=== PATIENT | female | born 1990 | race Native Hawaiian/Other Pacific Islander ===

== ENCOUNTER 2018-09-22 23:17 | Inpatient (IN) | payer OTHER ==
[2018-09-22 23:53] VITALS: BMI 32.6
[2018-09-23] MEDS ORDERED: Lidocaine 1% (PF) 30 ML VIAL ONE (00:03)
[2018-09-23] MEDS ORDERED: NS / Oxytocin 40 units/1000ml 1,000 ML ONE (00:03)
[2018-09-23] MEDS ORDERED: Lactated Ringer's 1,000 ML IV SCH ×2 (00:20)
[2018-09-23] MEDS ORDERED: Ibuprofen 800 MG TAB PO PRN (00:20)
[2018-09-23] MEDS ORDERED: NS w/ Oxytocin 10 units 500 ML IV SCH (00:20)
[2018-09-23] MEDS ORDERED: Lidocaine 1% (PF) 30 ML VIAL SC PRN (00:20)
[2018-09-23] MEDS ORDERED: Butorphanol Tartrate 1 MG/ML VIAL SLOW IVP PRN (00:20)
[2018-09-23] MEDS ORDERED: HYDROcodone/Acetaminophen 5/325 mg Tablet PO PRN ×4 (00:20→02:24)
[2018-09-23] MEDS ORDERED: hydrALAZINE 20 MG/ML VIAL SLOW IVP PRN ×2 (00:20→02:24)
[2018-09-23] MEDS ORDERED: NS / Oxytocin 40 units/1000ml 1,000 ML IV PRN (00:20)
[2018-09-23] MEDS ORDERED: Promethazine HCl 25 MG/ML VIAL IM PRN ×2 (00:20→02:24)
[2018-09-23] MEDS ORDERED: Ondansetron PF 4 MG/2 ML Vial IVP PRN ×2 (00:20→02:24)
--- NOTE | 2018-09-23 00:21 | PDOC.LDHP ---
Labor and Delivery H&P Chief complaint: contractions HPI: 28 yo at term 38 wk in labor at 7 cm presentation Current gestational age (weeks): 38 Due date: 10/07/18 Dating criteria: last menstrual period, first trimester ultrasound Grav: 5 Para: 4 OB History Details: later transfer to [facility] from Current complications: none Abnormal US findings: No Current medications: pre- vitamins Previous surgical history: none Allergies/Adverse Reactions: Allergies Allergy/AdvReac Type Severity Reaction Status Date / Time No Known Allergies Allergy Verified 09/22/18 23:47 Social history: none - Physical Exam Vital signs reviewed and normal: yes General: NAD Heart: RRR Lungs: nonlabored breathing Abdomen: NTTP Extremeties: no edema FHT: category 1 - Vaginal Exam cm dilated: 7 Effacement: 100% Station: 2+ - OB Labs Blood type: B RH: positive Antibody Screen: negative HIV: negative RPR: negative HEPSAg: negative 1 hour GCT: negative GBS: negative - Assessment L&D Assessment: term patient in labor - Plan Plan: admit to L&D
--- NOTE | 2018-09-23 00:23 | PDOC.OPDEL ---
OB Operative/Delivery Note Delivery Dr/Surgeon: Aol Pride Pre-Delivery Diagnosis: active labor Procedure/Post Delivery Dx: spontaneous vaginal delivery Weeks gestation: 38 Anesthesia: none - Findings A Sex: female Weight: 0 oz (pend) - 1 min: 0 (pend) - 5 min: 0 - Additional Findings/Plan Placenta delivered: spontaneous Repaired Obstetrical Laceration: none Estimated blood loss: 300 Compilations/Other Findings: 0013 attended delivery by RN, I presented at baby delivered. placed on maternal abdomen. placenta spontaneous. routine post care Post delivery plan: routine recovery
[2018-09-23 00:34] LABS: Hemoglobin 12.6 g/dL (12.0-16.0); Mean Corpuscular HGB CONC 31.6 g/dL (32.0-36.0); Mean Corpuscular Hemoglobin 27.5 pg (27.0-31.0); Mean Corpuscular Volume 87.1 fL (78.0-98.0); Mean Platelet Volume 8.3 fL (7.4-10.4); Platelet Count 202 thou/uL (130-400); RBC Distribution Width 12.5 % (11.5-14.5); Red Blood Cell (RBC) Count 4.57 mill/uL (4.20-5.40); White Blood Cell (WBC) Count 17.7 thou/uL (4.8-10.8)
[2018-09-23 01:16] LABS: HBSAg Index 0.31 S/CO (0-0.99); Hep B Surf Ag Non-Reactive S/CO (NonReactive); Syphilis Antibody Nonreactive (Nonreactive); Syphilis Antibody Index 0.04 S/CO (<1.00 Non-Reactive)
[2018-09-23] MEDS ORDERED: Lanolin Ointment 7 GM TUBE TOP PRN (02:24)
[2018-09-23] MEDS ORDERED: Milk Of Magnesia 30 ML UDCUP PO PRN (02:24)
[2018-09-23] MEDS ORDERED: NS / Oxytocin 40 units/1000ml 1,000 ML IV SCH (02:24)
[2018-09-23] MEDS ORDERED: Bisacodyl 10 MG SUPP PR PRN (02:24)
[2018-09-23] MEDS ORDERED: diphenhydrAMINE 25 MG CAP PO PRN (02:24)
[2018-09-23] MEDS ORDERED: Preparation H Ointment 28 GM TUBE PR PRN (02:24)
[2018-09-23] MEDS ORDERED: Benzocaine-Menthol 82.5 ML CAN TOP PRN (02:24)
[2018-09-23] MEDS ORDERED: Zolpidem Tartrate 5 MG TAB PO PRN (02:24)
--- NOTE | 2018-09-23 06:44 | PDOC.PP ---
Post Progress Note Post Day #: 0 PO intake tolerated: yes Flatus: yes Ambulation: yes Vital Signs (12 hours) Temp Pulse Resp BP Pulse Ox 09/23/18 03:55 98.2 F 70 18 100/59 L 09/23/18 03:00 98.2 F 67 18 109/67 99 Weight Weight 173 lb - Physical Examination General: NAD Cardiovascular: no m/r/g, RRR Respiratory: clear to auscultation bilaterally Abdominal: lochia Extremities: negative homans (B) Neurological: no gross focal deficits Psychiatric: A&Ox3, normal affect Result Diagrams: 09/23/18 00:22 Additional Labs: Post Labs Blood Type B POSITIVE 09/23/18 01:31 Hep Bs Antigen Non-Reactive S/CO (NonReactive) 09/23/18 00:22 - Assessment/Plan doing well 6 hr PP, routine care, home in am
[2018-09-23] MEDS: Ferrous Sulfate 325 MG TAB PO SCH ×2 (07:50→16:48)
[2018-09-23] MEDS ORDERED: Adacel (T-DAP) 0.5 ML SYRINGE IM ONE (09:00)
[2018-09-23] MEDS: Prenatal Vitamin 1 TAB PO SCH (09:30)
[2018-09-23] MEDS: Ibuprofen 800 MG TAB PO SCH ×3 (09:30→21:32)
[2018-09-23] MEDS: Docusate Calcium (SURFAK) 240 MG CAP PO SCH ×2 (09:30→21:32)
[2018-09-24] MEDS: Ibuprofen 800 MG TAB PO SCH (06:25)
[2018-09-24 08:24] VITALS: BP 106/68; TEMP 98.1
[2018-09-24] MEDS: Ferrous Sulfate 325 MG TAB PO SCH (08:54)
[2018-09-24] MEDS: Docusate Calcium (SURFAK) 240 MG CAP PO SCH (09:45)
[2018-09-24] MEDS: Prenatal Vitamin 1 TAB PO SCH (09:45)
--- NOTE | 2018-09-24 11:18 | DIS ---
DATE OF ADMISSION: 09/23/2018 DATE OF DISCHARGE: 09/24/2018 ADMITTING DIAGNOSES: 1. Intrauterine at 38 weeks. 2. Labor. DISCHARGE DIAGNOSES: 1. Intrauterine at 38 weeks. 2. Labor. PROCEDURE: Term spontaneous vaginal delivery. CONSULTATIONS: None. HOSPITAL COURSE: The patient is a 28-year-old female, who presented at 38 weeks gestation at 7 cm dilation and was admitted for expectant management of labor, which resulted in uncomplicated term spontaneous vaginal delivery. The patient was subsequently transferred to the floor for routine care, where she has had no complications. Today is day 2. She reports that she is tolerating p.o., voiding on her own, having decreased lochia and good pain control. PHYSICAL EXAMINATION: VITAL SIGNS: Blood pressure is 107/67, temperature 97.8, pulse of 80, and respiratory rate of 16. GENERAL: She appears to be in no acute distress. She is alert, oriented, cooperative, and pleasant to interact with. GENITOURINARY: Fundus is firm at the umbilicus -2. EXTREMITIES: Nontender and nonedematous. The patient is being discharged to home with ibuprofen to be taken as needed for pain. She has instructions to follow up with Dr. Pride in 6 weeks for routine care or sooner if she experiences fever, increasing pain, or bleeding. Job ID: [id number]
== END 2018-09-24 09:35 | disposition home or self-care (01) | DRG 807 ==
LOC: L&D/OP 23:17 → L&D 09-23 00:02 → 3SW 09-23 03:00
PROVIDERS: ADMIT Student in an Organized Health Care Education/Training Program; ATTEND Student in an Organized Health Care Education/Training Program
PROC: 10E0XZZ Delivery of Products of Conception, External Approach (ICD-10-PCS; principal; 2018-09-23)
DX: O80 Encounter for full-term uncomplicated delivery (principal); Z37.0 Single live birth; Z3A.38 38 weeks gestation of pregnancy
CPT/HCPCS: 36415; 85027; 86780; 86850; 86900; 86901; 87340; 99285; J2001

== ENCOUNTER 2020-09-13 15:28 | Emergency (ER) | payer OTHER ==
[2020-09-13 16:24] LABS: #Lymphocytes 2.2 thou/uL (1.20-3.40); #Monocytes 0.5 thou/uL (0.11-0.59); #Neutrophils 12.8 thou/uL (1.40-6.50); %Basophils 0.2 % (0.0-1.0); %Eosinophils 0.2 % (0.0-10.0); %Lymphocytes 13.9 % (21.0-51.0); %Monocytes 3.3 % (0.0-10.0); %Neutrophils 82.4 % (42.0-75.0); Hemoglobin 13.9 g/dL (12.0-16.0); Mean Corpuscular HGB CONC 31.7 g/dL (32.0-36.0); Mean Corpuscular Hemoglobin 27.9 pg (27.0-31.0); Mean Corpuscular Volume 88.1 fL (78.0-98.0); Mean Platelet Volume 8.5 fL (7.4-10.4); Platelet Count 281 thou/uL (130-400); RBC Distribution Width 11.8 % (11.5-14.5); Red Blood Cell (RBC) Count 4.99 mill/uL (4.20-5.40); White Blood Cell (WBC) Count 15.6 thou/uL (4.8-10.8)
[2020-09-13 16:49] LABS: ALT (SGPT) 39 U/L (8-55); AST (SGOT) 21 U/L (5-34); Albumin 4.7 g/dL (3.5-5.0); Alkaline Phosphatase 54 U/L (40-110); Anion Gap 13 mmol/L (10-20); BUN (Urea Nitrogen) 10 mg/dL (7.0-18.7); Bilirubin, Total 0.5 mg/dL (0.2-1.2); Calc. Creatinine Clearance 0 mL/min (70-130); Calcium 9.8 mg/dL (7.8-10.44); Carbon Dioxide 22 mmol/L (22-29); Chloride 104 mmol/L (98-107); Globulin 4.1 g/dL (2.4-3.5); Glucose 88 mg/dL (70-105); Lipase 28 U/L (8-78); Potassium 3.9 mmol/L (3.5-5.1); Protein, Total 8.8 g/dL (6.0-8.3); Sodium 135 mmol/L (136-145)
== END 2020-09-13 17:48 | disposition home or self-care (01) ==
LOC: ERS 15:28
DX: F41.1 Generalized anxiety disorder (principal); R07.2 Precordial pain
CPT/HCPCS: 36415; 71045; 80053; 83690; 84484; 85025; 93005